=== PATIENT | male | born 1965 | race Caucasian/White ===

== ENCOUNTER 2016-06-26 12:19 | Day surgery (SDC) | payer OTHER ==
[~2016-06-26] VITALS: Ht 175.3 cm; Wt 77.1 kg
[~2016-06-26 12:19] MED LIST: ERGO2000 PO
[2016-06-26 13:32] VITALS: BP 161/99; PULSE 92; RESP 16; O2SAT 98
[2016-06-26] MEDS ORDERED: fentaNYL-PF 50 mCg/mL 2 mL Inj ONE (13:32)
[2016-06-26] MEDS ORDERED: GABA-502 PO (13:45)
--- NOTE | 2016-06-26 14:42 | PCM.ENDCOL ---
Colonoscopy Date of Service: Jun 26, 2016 Physician Joe Burnett MD Pre Procedure Diagnosis: Screening Post Procedure Dx & Findings: Polyp hemorrhoids and diverticula Procedure Colonoscopy PROCEDURE IN DETAIL: Prep adequate Withdrawal time 12 minutes After unremarkable rectal examination the Olympus video colonoscope was inserted patient's anal canal and was advanced to cecum. Landmarks were identified including the ileocecal valve and appendiceal orifice. Scope was withdrawn systematically. Visualized colonic mucosa showed healthy shiny mucosa with normal healthy-appearing vasculature. In the transverse colon, there was a 2 mm polyp which was removed completely using cold snare. In the sigmoid colon, there was a 2.5 cm polyp. This was removed completely using hot snare. 2 resolution clips deployed. In the rectum , there was a 2 mm polyp which was removed completely using cold snare. In the sigmoid colon there were several small to medium-sized diverticuli. In the rectum retroflexion was done which showed hemorrhoids. Anal canal was inspected carefully on the way out and hemorrhoids noted. Impression Polyps 3 status post complete removal. Largest polyp was 2.5 cm. Diverticuli Hemorrhoids Recommendation Repeat colonoscopy 3 years Diverticular diet Presedation Assessment Risks and Benefits Informed consent was obtained from the patient after all risks and benefits including but not limited to drug reaction, infection, pain, bleeding, perforation, as well as alternatives were discussed. Patient monitoring Continuous pulse oximetry, cardiac monitoring, blood pressure monitoring, IV access, and oxygen at 2L per nasal cannula. Periprocedural Fentanyl: Fentanyl 150mcg Incrementally Midazolam: Midazolam 7mg Incrementally Complications There were no periprocedural complications identified. Post Procedure Plan Post Procedure Recommendations 1. Restrict activities today. 2. Resume normal activities in the morning. 3. Resume medications. 4. Patient informed of normal post procedure side effects as bloating, drowsiness, blood streaking in the stool. 5. average risk CRCS. If colon polyps come back as: -Hyperplastic- can repeat colonoscopy in 10 years -Tubular adenoma- repeat colonoscopy in 5 years -Tubulovillous/villous adenoma- repeat colonoscopy in 3 years -If any dysplasia- return to clinic as soon as possible 6. Please don't hesitate to call me with any questions. Joe Burnett MD Jun 26, 2016 14:42
[2016-06-26 14:50] VITALS: BP 137/84; PULSE 84; RESP 16; O2SAT 90
[2016-06-26 15:00] VITALS: BP 125/80; PULSE 87; RESP 16; O2SAT 96
[2016-06-26] MEDS ORDERED: 0.9% Sodium Chloride 1,000 ML IV ONE (15:05)
[2016-06-26 15:07] VITALS: BP 129/93; PULSE 85; RESP 16; O2SAT 96
--- NOTE | 2016-06-28 11:38 | PATH ---
SURGICAL PATHOLOGY Attending Physician:Joe Burnett M.D. CASE STATUS: Signed Out PATIENT NAME: ANUPAM ARREDONDO I. PID: [id number] : 1965 DATE COLLECTED:06/26/2016 00:00 SPECIMEN: 1: Colon, Biopsy 2: Rectum, Biopsy CLINICAL HISTORY: 1. SIGMOID COLON POLYP X1 2. RECTAL POLYP X1 FINAL DIAGNOSIS: A. Sigmoid Colon, Polyp, Biopsy: Tubulovillous adenoma; negative for high-grade dysplasia. B. Rectum, Polyp, Biopsy: Tubular adenoma; negative for high-grade dysplasia. ICD10: K63.5 GROSS DESCRIPTION: The specimen is received in two formalin filled containers labeled with the patient's name. 1). The specimen sublabeled "sigmoid colon polyp" and consists of a dark brown portion of tissue which measures 1.0 x 0.8 x 0.8 CM. The specimen is trisected and totally submitted in cassette 1A. 2). The specimen is sublabeled "rectal polyp" and consists of a 0.4 x 0.4 x 0.3 CM portion of tissue which is entirely submitted in cassette 2A. 06/27/2016 [facility] ICD-9 CODES: CPT CODES: 1: 04970 2: 02490 Electronically Signed Out Arlin Dang MD [facility] [address], [place] [address] Technical component performed at [facility], [address] [place] [address] [address], [place], [address]
== END 2016-06-26 23:59 | disposition home or self-care (01) ==
LOC: END 12:19
PROVIDERS: ATTEND Internal Medicine
DX: Z12.11 Encounter for screening for malignant neoplasm of colon (principal); D12.5 Benign neoplasm of sigmoid colon; D12.8 Benign neoplasm of rectum; K57.30 Diverticulosis of large intestine without perforation or abscess without bleeding; K64.8 Other hemorrhoids
CPT/HCPCS: 45385; 99153; G0500; J2250; J3010; J7030